=== PATIENT | female | born 1975 | race Hispanic/Latino ===

== ENCOUNTER → 2019-03-07 | Outpatient (CLI) | payer BC | END | disposition home or self-care (01) | LOC: RAH 10:14 | PROVIDERS: ATTEND Obstetrics & Gynecology | DX: N92.1 Excessive and frequent menstruation with irregular cycle (principal); D25.9 Leiomyoma of uterus, unspecified | CPT/HCPCS: 76856 ==

== ENCOUNTER 2019-03-10 15:19 | Emergency (ER) | payer BC ==
[2019-03-10] MEDS ORDERED: ACETAMINOPHEN EXTRA STRENGTH 500 MG TABLET ONE (16:00)
[2019-03-10] MEDS ORDERED: METOCLOPRAMIDE 10 MG TABLET ONE (16:00)
== END 2019-03-10 17:17 | disposition home or self-care (01) ==
LOC: EDH 15:19
DX: G44.209 Tension-type headache, unspecified, not intractable (principal); Z72.0 Tobacco use

== ENCOUNTER → 2019-04-22 | Outpatient (CLI) | payer BC | END | disposition home or self-care (01) | LOC: RAH 13:47 | PROVIDERS: ATTEND Obstetrics & Gynecology | DX: R92.2 Inconclusive mammogram (principal) | CPT/HCPCS: 76641 ==

== ENCOUNTER → 2019-11-11 | Outpatient (CLI) | payer BC | END | disposition home or self-care (01) | LOC: RAH 10:00 | PROVIDERS: ATTEND Obstetrics & Gynecology | DX: N64.4 Mastodynia (principal) | CPT/HCPCS: 76641 ==

== ENCOUNTER 2021-07-07 00:21 | Emergency (ER) | payer BC, OTHER ==
[~2021-07-07] VITALS: Ht 160 cm; Wt 59.0 kg
[2021-07-07 00:48] LABS: BASOPHILS % (AUTO) 0.6 % (0.0-5.0); EOSINOPHILS % (AUTO) 4.2 % (0.0-8.0); HEMATOCRIT 34.7 % (36-48); LYMPHOCYTES % (AUTO) 28.5 % (21.0-51.0); MEAN CORPUSCULAR HEMOGLOBIN 30.5 pg (27.0-33.0); MEAN CORPUSCULAR HGB CONC 32.9 g/dL (32.0-36.0); MEAN CORPUSCULAR VOLUME 92.8 fL (79-99); MONOCYTES % (AUTO) 9.1 % (3.0-13.0); NEUTROPHILS % (AUTO) 57.3 % (40.0-77.0); PLATELET COUNT (AUTO) 291 K/uL (130-400); RED BLOOD CELL COUNT(AUTO) 3.74 MIL/uL (4.00-5.50); RED CELL DISTRIBUTION WIDTH 13.3 % (11.0-15.5); WHITE BLOOD COUNT (AUTO) 9.5 K/uL (4.8-10.8)
[2021-07-07 01:00] LABS: CREATININE 0.6 mg/dL (0.5-1.5); POTASSIUM 3.5 mmol/L (3.5-5.1)
[2021-07-07 01:04] LABS: ALBUMIN 3.7 g/dL (3.5-5.0); BILIRUBIN,TOTAL 0.1 mg/dL (0.2-1.0); TOTAL PROTEIN, SERUM 7.4 g/dL (6.0-8.3)
[2021-07-07 01:25] LABS: APPEARANCE,URINE Cloudy (CLEAR); BILIRUBIN,URINE Negative (NEGATIVE); COLOR,URINE Yellow (YELLOW); GLUCOSE, URINE (UA) Negative (NEGATIVE); KETONES,URINE Negative (NEGATIVE); LEUKOCYTE ESTERASE ,URINE Negative (NEGATIVE); NITRATE,URINE Negative (NEGATIVE); OCCULT BLOOD,URINE Trace (NEGATIVE); PROTEIN,URINE Negative (NEGATIVE); UROBILINOGEN,URINE 0.2 mg/dL (0.2-1.0)
[2021-07-07 01:48] LABS: BACTERIA,URINE Moderate /HPF (None Seen); RBC,URINE 0-1 /HPF (0-1)
[2021-07-07 01:49] LABS: SQUAMOUS EPITHELIAL CELL,UR Many /HPF (0-2)
[2021-07-07] MEDS ORDERED: DEXAMETHASONE SOD PHOSPHATE 4 MG/ML 1ML VIAL ONE (02:59)
[2021-07-07] MEDS ORDERED: KETOROLAC 30MG VIAL (30MG/ML) ONE (02:59)
[2021-07-07] MEDS ORDERED: DEXAMETHASONE SOD PHOSPHATE 4 MG/ML 1ML VIAL IV ONE (03:00)
[2021-07-07] MEDS ORDERED: ORPHENADRINE CITRATE 30 MG/ML ML ONE (03:00)
[2021-07-07] MEDS ORDERED: ORPHENADRINE CITRATE 30 MG/ML ML IV ONE (03:00)
[2021-07-07] MEDS ORDERED: KETOROLAC 30MG VIAL (30MG/ML) IV ONE (03:00)
[2021-07-07 04:24] VITALS: BP 142/85
[2021-07-07] MEDS ORDERED: CYCL-309 PO (04:31)
[2021-07-07] MEDS ORDERED: LIDOP TP (04:31)
[2021-07-07] MEDS ORDERED: MELO7.5T12 PO (04:31)
== END 2021-07-07 05:10 | disposition home or self-care (01) ==
LOC: EDH 00:21
DX: R07.89 Other chest pain (principal); M62.838 Other muscle spasm; M54.9 Dorsalgia, unspecified; Z20.822 Contact with and (suspected) exposure to COVID-19; J45.909 Unspecified asthma, uncomplicated; Z79.1 Long term (current) use of non-steroidal anti-inflammatories (NSAID); Z79.52 Long term (current) use of systemic steroids
CPT/HCPCS: 36415; 71045; 80053; 81001; 84484; 85025; 87088; 87635; 87804 ×2; 93005; 96374; 96375; 99285; C9803; J1100; J1885; J2360

== ENCOUNTER 2021-10-07 12:26 | Emergency (ER) | payer OTHER ==
[~2021-10-07] VITALS: Ht 152.4 cm; Wt 59.0 kg
[~2021-10-07 12:26] MED LIST: CYCL-309 PO; LIDOP TP; MELO7.5T12 PO
[2021-10-07 14:29] LABS: APPEARANCE,URINE Clear (CLEAR); BILIRUBIN,URINE Negative (NEGATIVE); COLOR,URINE Yellow (YELLOW); GLUCOSE, URINE (UA) Negative (NEGATIVE); KETONES,URINE Negative (NEGATIVE); LEUKOCYTE ESTERASE ,URINE Negative (NEGATIVE); NITRATE,URINE Negative (NEGATIVE); OCCULT BLOOD,URINE Negative (NEGATIVE); PROTEIN,URINE Negative (NEGATIVE)
[2021-10-07 14:44] LABS: HCG,QUAL RESULT NEGATIVE (NEGATIVE)
[2021-10-07] MEDS ORDERED: ONDA4TAB10 PO (16:04)
[2021-10-07] MEDS ORDERED: IBUP-2070 PO (16:04)
[2021-10-07 16:24] VITALS: BP 149/82
[2021-10-07] MEDS ORDERED: KETOROLAC 30MG VIAL (30MG/ML) IM ONE (16:30)
== END 2021-10-07 16:46 | disposition home or self-care (01) ==
LOC: EDH 12:26
DX: S06.0X0A Concussion without loss of consciousness, initial encounter (principal); Z79.899 Other long term (current) drug therapy; Z98.890 Other specified postprocedural states; V86.95XA Unspecified occupant of 3- or 4- wheeled all-terrain vehicle (ATV) injured in nontraffic accident, initial encounter; Y93.89 Activity, other specified; Y92.89 Other specified places as the place of occurrence of the external cause; Y99.8 Other external cause status
CPT/HCPCS: 70450; 72125; 81003; 81025; 96372; 99284; J1885

== ENCOUNTER → 2024-01-08 | Outpatient (CLI) | payer OTHER ==
[~2024-01-08] MED LIST changes: +IBUP-2070 PO; +ONDA-243 PO
== END | disposition home or self-care (01) ==
LOC: RAH 14:10
PROVIDERS: ATTEND Family Medicine
DX: Z12.31 Encounter for screening mammogram for malignant neoplasm of breast (principal)
CPT/HCPCS: 77067

== ENCOUNTER 2024-07-18 11:13 | Emergency (ER) | payer OTHER ==
[~2024-07-18] VITALS: Ht 152.4 cm; Wt 54.4 kg
--- NOTE | 2024-07-18 11:42 | ERN ---
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 SHE DENIED NO BLOOD THINNERS NO LOC NO NAUSEA VOMITING HAS NOT BEEN TO SEE HER DOCTOR. SHE HAS A CONTUSION TO THE FOREHEAD. NO HEMOTYMPANUM NO MEJIA OR RACCOON SIGN. SHE DROVE HERSELF TO THE HOSPITAL IN HIS NOT BEEN TO SEE YOUR DOCTOR, HAS NOT TAKEN ANYTHING PRIOR TO ARRIVAL FOR PAIN Allergies: Coded Allergies: No Known Drug Allergies (Unverified Allergy, Unknown, 07/07/21) Home Meds Active Scripts Ibuprofen (Ibuprofen) 600 Mg Tablet, 600 MG PO Q6H PRN for PAIN, #15 TAB Prov:ARIADNA ECHEVARRIA 10/07/21 Ondansetron (Ondansetron Odt) 4 Mg Tab.rapdis, 4 MG PO TID, #15 TAB Prov:FITTINGARIADNAP 10/07/21 Lidocaine (Lidoderm Patch 5%) 1 Patch Patch, 1 PATCH TP DAILY PRN for PAIN LEVEL 1 TO 5, #30 ADH.PATCH 0 Refills Prov:CARLOS EDUARDO ALBERTO MD 07/07/21 Cyclobenzaprine HCl (Cyclobenzaprine HCl) 10 Mg Tablet, 10 MG PO TIDP, #20 TAB 0 Refills Prov:CARLOS EDUARDO ALBERTO MD 07/07/21 Meloxicam (Mobic) 7.5 Mg Tablet, 7.5 MG PO DAILY, #10 TAB 0 Refills Prov:CARLOS EDUARDO ALBERTO MD 07/07/21 Past Medical History Past Medical History: No Pertinent History Additional Past Medical Hx: COVID 12/26 Surgical History: Other Surgical History Other: BTL Social History: Lives with family History: Not Applicable RN Note Reviewed/Agreed w/PFSH: Yes Review of System Dictation CONSTITUTIONAL: NEGATIVE EXCEPT FOR HPI HEAD/FACE: NEGATIVE EXCEPT FOR HPI FOREHEAD CONTUSION GENERALIZED EENT: NEGATIVE EXCEPT FOR HPI RESPIRATORY: NEGATIVE EXCEPT FOR HPI GASTROINTESTINAL/ABDOMINAL: NEGATIVE EXCEPT FOR HPI GENITOURINARY: NEGATIVE EXCEPT FOR HPI MUSCULOSKELETAL: NEGATIVE EXCEPT FOR HPI INTEGUMENTARY: NEGATIVE EXCEPT FOR HPI NEUROLOGICAL/PSYCH: NEGATIVE EXCEPT FOR HPI FRONTAL HEADACHE HEMATOLOGIC/LYMPHATIC: NEGATIVE EXCEPT FOR HPI ALL SYSTEMS NEGATIVE, EXCEPT NOTED ABOVE. 13 POINT REVIEW OF SYSTEMS ASSESSED AND ALL NEGATIVE EXCEPT FOR ABOVE. Initial Vital Sign VS Vital Signs Date Time Temp Pulse Resp B/P (MAP) Pulse Ox O2 Delivery O2 Flow Rate FiO2 07/18/24 12:07 98.8 80 20 133/74 96 Room Air 0 Physical Exam Dictation VITAL SIGNS REVIEWED GENERAL APPEARANCE: ALERT, ORIENTED X 3, ACUTE DISTRESS, WELL DEVELOPED, N OURISHED. HEAD AND FACE: CONTUSION TO RIGHT FOREHEAD EYES: PERRL, PINK CONJUNCTIVAS, EYELID NO TRAUMA, ANTERIOR CHAMBER WITH ARCUS SENILIS. NO MJEIA OR RACCOON SIGN EARS: PINNAS INTACT AND NO SIGNS OF TRAUMA OR ERYTHEMA EAR CANALS CLEAR AND NO DISCHARGE TM NO ERYTHEMA NO HEMOTYMPANUM NOSE: NO DISCHARGE, NO BLEEDING. OROPHARYNX: MOUTH NORMAL, TONGUE PINK, PHARYNX CLEAR,NO ERYTHEMA, TONSILS NO EXUDATES, NO ABSCESSES NOTED, MUCOUS MEMBRANE MOIST NECK: SUPPLE, NON-TENDER, NO THYROMEGALY, NO MASSES, NO JVD, NO BRUITS BREAST:DEFERRED CHEST:NO TENDERNESS, NO CREPITUS, NO PARADOXICAL MOVEMENT, NO RETRACTIONS LUNGS:CLEAR, WELL-VENTILATED, SYMMETRIC, NO RALES, NO WHEEZING, NO RHONCHI, NO STRIDOR, GOOD BREATH SOUNDS BILATERALLY HEART: REGULAR RATE, REGULAR RHYTHM, NO MURMUR, NO GALLOPS VASCULAR: NO PERIPHERAL EDEMA, ABDOMEN: SOFT, POSITIVE BOWEL SOUNDS, NONDISTENDED, NO GUARDING, NONTENDER, NO REBOUND, NO MASSES NO HEPATOMEGALY, NO SPLENOMEGALY, NO BANUELOS'S SIGN, NO HERNIAS. RECTAL: DEFERRED GENITAL: DEFERRED NEUROLOGICAL: NORMAL SPEECH, MOTOR FUNCTION INTACT, SENSORY FUNCTION INTACT NIH NIH IS 0 MUSCULOSKELETAL: NECK NONTENDER, FULL RANGE OF MOTION, BACK NONTENDER, FULL RANGE OF MOTION, EXTREMITIES: NONTENDER, FULL RANGE OF MOTION SKIN: COLOR PINK, DRY, NO TURGOR, NO RASH, NO LACERATIONS, NO ABRASIONS, NO CONTUSIONS. LYMPHATIC: DEFERRED Results (Laboratory/Radiology) Laboratory/Radiology PROCEDURE: HEAD WO - CT HEAD/BRAIN W/O CONTRAST CT HEAD/BRAIN W/O CONTRAST HISTORY: Headaches COMPARISON: None TECHNIQUE: Multiple sequential axial images of the head were obtained from the base of the skull through vertex. Patient was not given contrast through intravenous route. FINDINGS: The ventricles and extraventricular CSF spaces are nondilated for patient's age. There is no midline shift, mass effect or herniation. No acute intracranial bleed is seen. Visualized portion of the paranasal sinuses are grossly within normal limits. IMPRESSION: 1. No acute intracranial bleed is seen. Labs Reviewed?: Yes ED Course ED Course Orders Procedure Category Date Status Time Ct Head/Brain W/O CT 07/18/24 Resulted Contrast 11:39 Acetaminophen 500mg PHA 07/18/24 Complete Tab (Tylenol 500mg T 12:00 Current Medications Medications (Trade) Dose Ordered Sig/Celia Route PRN Reason Start Time Stop Time Status Last Admin Dose Admin Acetaminophen (TYLenol 500MG TAB) 1,000 mg ONCE ONCE PO 07/18/24 12:00 07/18/24 12:01 DC Vital Signs Date Time Temp Pulse Resp B/P (MAP) Pulse Ox O2 Delivery O2 Flow Rate FiO2 07/18/24 12:07 98.8 80 20 133/74 96 Room Air 0 TWELVE 30 PATIENT NEUROLOGICALLY INTACT, CT NEGATIVE WE WILL DISCHARGE PATIENT HOME WITH POSTTRAUMATIC HEADACHE TOLD TO SEE HER DOCTOR AT [facility]. Medical Decision Making MDM MEDICAL DISCHARGE MAKING BASED ON CT OF THE HEAD AND TREATMENT FOR PAIN. CT NEGATIVE PATIENT DISCHARGED HOME WITH POSTTRAUMATIC HEADACHE AND TOLD TO SEE HER DOCTOR AT [facility] DX & DISP Disposition: Discharge Departure Impression: Primary Impression: Posttraumatic headache Condition: Stable Additional Instructions: FOLLOW-UP WITH PRIMARY CARE PROVIDER IN 1 TO 2 DAYS. TAKE MEDICATIONS DIRECTED HERE IN THE EMERGENCY ROOM. OKAY TO CONTINUE HOME MEDICATIONS UNLESS OTHERWISE DISCUSSED DURING YOUR VISIT IN THE EMERGENCY ROOM TODAY. RETURN TO YOUR NEAREST EMERGENCY ROOM IF SYMPTOMS WORSEN OR IF THERE IS NO IMPROVEMENT. CALL 911 IF YOU NEED IMMEDIATE ASSISTANCE. TAKE TYLENOL OR MOTRIN OVER-THE-CO UNTER NEEDED AND IF NO CONTRAINDICATIONS ARE PRESENT. INCREASE ORAL HYDRATION. A WOUND CULTURE OR URINE CULTURE WAS ORDERED HERE IN THE EMERGENCY ROOM DEPARTMENT PLEASE FOLLOW-UP WITH PRIMARY CARE PROVIDER AND ADVISE THEM TO GET REPEAT PORTS FROM OUR FACILITY. IF YOU HAD ANY GREGG WRAP/SPLINTS THAT WERE APPLIED HERE, PLEASE DO NOT REMOVE THEM UNTIL YOU SEE YOUR PRIMARY CARE OR SPECIALTY. TAKE TYLENOL [id number] NEEDED FOR PAIN. FOLLOW UP WITH YOUR PRIMARY CARE DOCTOR AT [facility]. Referrals: CLARKE BRICENO (PCP) Time of Disposition: 12:31 I have reviewed the case, and I agree with, Diagnosis and Plan DANA CELIS NP Jul 18, 2024 11:42
--- NOTE | 2024-07-18 12:10 | HMCIMG ---
CT HEAD/BRAIN W/O CONTRAST HISTORY: Headaches COMPARISON: None TECHNIQUE: Multiple sequential axial images of the head were obtained from the base of the skull through vertex. Patient was not given contrast through intravenous route. FINDINGS: The ventricles and extraventricular CSF spaces are nondilated for patient's age. There is no midline shift, mass effect or herniation. No acute intracranial bleed is seen. Visualized portion of the paranasal sinuses are grossly within normal limits. IMPRESSION: 1. No acute intracranial bleed is seen. CT was performed with one or more following dose reduction techniques: automated exposure control, adjustment of the mA and kv according to patient's size, or use of a iterative reconstruction technique.
[2024-07-18 12:58] VITALS: BP 141/62; PULSE 87; RESP 20; TEMP 98.7; O2SAT 100
[2024-07-18] MEDS: acetaMINOPHEN 500 MG TABLET PO ONE (13:07)
== END 2024-07-18 13:16 | disposition home or self-care (01) ==
LOC: EDH 11:13
DX: G44.309 Post-traumatic headache, unspecified, not intractable (principal); Z79.1 Long term (current) use of non-steroidal anti-inflammatories (NSAID); Z98.51 Tubal ligation status; Z98.890 Other specified postprocedural states
CPT/HCPCS: 70450; 99284

== ENCOUNTER 2025-05-22 21:49 | Emergency (ER) | payer BC, OTHER ==
[~2025-05-22] VITALS: Ht 152.4 cm; Wt 48.1 kg
[~2025-05-22 21:49] MED LIST changes: +IBUP-1492 PO; -IBUP-2070 PO
--- NOTE | 2025-05-22 21:56 | NUR ---
ID GIVEN BACK TO PATIENT, EMS, BOYFRIEND AND LAB ALL PRESENT. PATIENT PLACED ID IN PURSE
[2025-05-22 22:06] LABS: IMMATURE GRANULOCYTE ABSOLUTE 0.01 K/uL (0-1); NUCLEATED RED BLOOD CELLS 0.0 % (0.0-0.19); PLATELET COUNT (AUTO) 236 K/uL (130-400); RED BLOOD CELL COUNT(AUTO) 4.00 MIL/uL (4.00-5.50); RED CELL DISTRIBUTION WIDTH 13.0 % (11.0-15.5); WHITE BLOOD COUNT (AUTO) 7.3 K/uL (4.8-10.8)
--- NOTE | 2025-05-22 22:09 | NUR ---
ER PHYSICIAN ADVISED OF PATIENTS CONCERNS
[2025-05-22 22:19] LABS: CREATININE 0.7 mg/dL (0.5-1.0); GLOMERULAR FILTR. RATE CALC 105.0 mL/min (>90); GLUCOSE,RANDOM 99.0 mg/dL (70-105); SODIUM SERUM 137.0 mmol/L (136-145); UREA NITROGEN, BLOOD 12.0 mg/dL (7-18)
[2025-05-22 22:24] LABS: CREATINE KINASE, TOTAL 67.0 U/L (21-232)
--- NOTE | 2025-05-22 22:51 | HMCIMG ---
EXAM: CR Chest, 1 view. CLINICAL HISTORY: Chest pain. COMPARISON: None. FINDINGS: The lungs show no infiltration or other acute findings. No pleural effusion or pneumothorax. The cardio mediastinal silhouette is within normal limits. No acute osseous abnormality. IMPRESSION: No acute cardiopulmonary pathology is evident. /[place]
--- NOTE | 2025-05-22 22:59 | ERN ---
ED Note History of Present Illness Stated Complaint: CHEST PAIN, SOB Chief Complaint: Chest Pain Time Seen by MD: 21:52 Dictation: This is a very pleasant 49-year-old female with no major health problems came into the ER for evaluation of chest pressure that started this evening at 7:00 p.m.. Apparently patient has spouse was on a hunting trip and after she came back from work after extremely stressful day she was transferring close from [facility] and did not feel well she began experiencing pressure in the chest and also back pain with numbness of hands. No trauma no fall no nausea vomitings. Appears somewhat anxious. She has no history of high blood pressure but during this episode her blood pressure was a little bit elevated and she took telmisartan of her spouse;s medication. Patient received a dose of aspirin and nitro per EMS No menstrual periods since June. Severe stress at work She denied any shortness of breath, palpitations, diaphoresis, presyncope or syncope she does give history of feeling tight in her neck She normally does not take any medications for hypertension no history of diabetes patient not on any cholesterol medications. No history of any angina in the past no family history of sudden deaths or cardiac events at a younger age. He does admit to vaping nicotine and also consuming approximately 10-12 drinks per week of alcohol Temperature 98.1 pulse 112 respirations 20 blood pressure 114/74 with a pulse oximetry of 98% on room air Patient has a history of COVID in 2020 she also has a head CT in July of 2024 which was completely normal Allergies: Coded Allergies: No Known Drug Allergies (Unverified Allergy, Unknown, 07/07/21) Home Meds Active Scripts Ibuprofen (Ibuprofen) 600 Mg Tablet, 600 MG PO Q6H PRN for PAIN, #15 TAB Prov:ARIADNA ECHEVARRIA 10/07/21 Ondansetron (Ondansetron Odt) 4 Mg Tab.rapdis, 4 MG PO TID, #15 TAB Prov:ARIADNA ECHEVARRIAP 10/07/21 Lidocaine (Lidoderm Patch 5%) 1 Patch Patch, 1 PATCH TP DAILY PRN for PAIN LEVEL 1 TO 5, #30 ADH.PATCH 0 Refills Prov:CARLOS EDUARDO ALBERTO MD 07/07/21 Cyclobenzaprine HCl (Cyclobenzaprine HCl) 10 Mg Tablet, 10 MG PO TIDP, #20 TAB 0 Refills Prov:CARLOS EDUARDO ALBERTO MD 07/07/21 Meloxicam (Mobic) 7.5 Mg Tablet, 7.5 MG PO DAILY, #10 TAB 0 Refills Prov:CARLOS EDUARDO ALBERTO MD 07/07/21 Past Medical History Past Medical History: Hyperthyroid Additional Past Medical Hx: COVID 12/26 Surgical History: None Surgical History Other: BTL Social History: Smokers (Vapes nicotine), ETOH, Lives with family History: Not Applicable RN Note Reviewed/Agreed w/PFSH: Yes Review of System Dictation Constitutional: Negative for fever,chills, and weight loss Eyes: Negative for injury, pain,redness, and discharge ENT: Negative for injury,pain or swelling Cardiovascular: Positive for chest pressure, palpitations, and edema Respiratory: Negative for shortness of breath, cough, and wheezing, Abdomen/GI: Negative for abdominal pain, nausea, vomiting, diarrhea, and constipation Back: Negative for injury and positive for pain : Negative for injury, bleeding and discharge MS/Extremity: Negative for injury and deformity Skin: Negative for rash, and discoloration Neuro: Negative for headache, weakness, numbness, and seizure positive for tingling of hands Psych: Negative for suicide ideation, homicidal ideation, and hallucinations Initial Vital Sign VS Vital Signs Date Time Temp Pulse Resp B/P (MAP) Pulse Ox O2 Delivery O2 Flow Rate FiO2 05/22/25 21:51 98.1 112 20 114/74 98 Room Air 0 Physical Exam Dictation General: awake, alert, NAD Head/Face: Normocephalic, atraumatic Eyes: PERRL, EOMI, vision at baseline ENT: oral cavity clear, TMs clear, no signs of infection Neck: Trachea midline, supple, no nuchal rigidity Cardiovascular: RRR, normal S1/S2, No MRGs, no JVD Respiratory: CTAB, no respiratory distress, No rales or wheezes Abdomen: Soft, non-tender, non-distended, normal bowel sounds, no guarding or rebound. Skin: Warm, dry, normal turgor, no rash MS/Extremity: Pulses equal, no cyanosis, neurovascular intact, FROM Neuro: COAx4, GCS 15, strength 5/5, CN 2-12 intact, normal cerebellar exam, normal gait, Psych: Normal behavior, mood, and affect normal Extremities-trace edema without any palpable cords, Homans sign is negative Results (Laboratory/Radiology) Laboratory/Radiology Laboratory Tests Test 05/22/25 21:58 White Blood Count 7.3 K/uL (4.8-10.8) Red Blood Count 4.00 MIL/uL (4.00-5.50) Hemoglobin 12.7 g/dL (12.0-16.0) Hematocrit 38.5 % (36-48) Mean Corpuscular Volume 96.3 fL (79-99) Mean Corpuscular Hemoglobin 31.8 pg (27.0-33.0) Mean Corpuscular Hemoglobin Concent 33.0 g/dL (32.0-36.0) Red Cell Distribution Width 13.0 % (11.0-15.5) Platelet Count 236 K/uL (130-400) Mean Platelet Volume 10.4 fL (7.5-10.5) Immature Granulocyte % (Auto) 0.1 % (0-1) Neutrophils (%) (Auto) 69.4 % (40.0-77.0) Lymphocytes (%) (Auto) 20.5 % (21.0-51.0) L Monocytes (%) (Auto) 7.9 % (3.0-13.0) Eosinophils (%) (Auto) 1.6 % (0.0-8.0) Basophils (%) (Auto) 0.5 % (0.0-5.0) Neutrophils # (Auto) 5.1 K/uL (1.8-7.7) Lymphocytes # (Auto) 1.5 K/uL (1.0-4.8) Monocytes # (Auto) 0.6 K/uL (0.1-1.0) Eosinophils # (Auto) 0.12 K/uL (0.00-0.70) Basophils # (Auto) 0.04 K/uL (0.00-0.20) Absolute Immature Granulocyte (auto 0.01 K/uL (0-1) Nucleated Red Blood Cells 0.0 % (0.0-0.19) Sodium Level 137 mmol/L (136-145) Potassium Level 3.9 mmol/L (3.5-5.1) Chloride Level 101 mmol/L (101-111) Carbon Dioxide Level 27 mmol/L (21-32) Blood Urea Nitrogen 12 mg/dL (7-18) Creatinine 0.7 mg/dL (0.5-1.0) Glomerular Filtration Rate Calc 105 mL/min (>90) Random Glucose 99 mg/dL (70-105) Total Calcium 9.2 mg/dL (8.5-10.1) Total Creatine Kinase 67 U/L (21-232) # Troponin I High Sensitivity 4.2 ng/L (4-50) Labs Reviewed?: Yes EKG Comment: 12 lead EKG done on 05/22/2025 at 10:03 p.m. shows a heart rate of 70, SC interval 125, QRS 77, QT/QTC 389/421. Normal sinus rhythm with no acute STT wave changes noted. Interpreted by ER MD Dr. Chandler ED Course ED Course Orders Procedure Category Date Status Time 12 Lead Ekg Tracing- EKG 05/22/25 Logged Technical 21:52 Cbc With Differential LAB 05/22/25 Complete 21:52 Basic Metabolic Panel LAB 05/22/25 Complete 21:52 Cardiac Panel LAB 05/22/25 Complete 21:52 Chest 1vw RAD 05/22/25 Resulted 21:52 Alprazolam 0.25mg PHA 05/22/25 Complete (Xanax 0.25mg) 23:00 Ketorolac PHA 05/22/25 Complete Tromethamine 15mg/Ml 23:00 Ketorolac PHA 05/22/25 Complete Tromethamine 30mg/Ml 23:23 Ketorolac PHA 05/22/25 Complete Tromethamine 30mg/Ml 23:30 Current Medications Medications (Trade) Dose Ordered Sig/Celia Route PRN Reason Start Time Stop Time Status Last Admin Dose Admin Alprazolam (XANax 0.25MG) 0.25 mg ONCE ONCE PO 05/22/25 23:00 05/22/25 23:01 DC 05/22/25 23:26 Ketorolac Tromethamine (toRADol) 15 mg ONCE ONCE IM 05/22/25 23:00 05/22/25 23:01 DC Ketorolac Tromethamine (toRADol) 15 mg ONCE ONCE IM 05/22/25 23:30 05/22/25 23:31 DC 05/22/25 23:31 Ketorolac Tromethamine (toRADol) 30 mg STK-MED ONCE .ROUTE 05/22/25 23:23 05/22/25 23:23 DC Vital Signs Date Time Temp Pulse Resp B/P (MAP) Pulse Ox O2 Delivery O2 Flow Rate FiO2 05/22/25 21:51 98.1 112 20 114/74 98 Room Air 0 HEART Score Response (Comments) Value History: Low suspicion (0) 0 EKG: Normal 0 Age: 45-65yrs (+1) 1 Risk Factors: No known risk factors (0) 0 Initial Troponin: Normal limit (0) 0 HEART Score Risk: Low Risk for MACE (1-3) Total 1 Medical Decision Making MDM Differential diagnosis: Unstable angina, ACS, anxiety Esophagitis, gastroesophageal reflux disease, hiatal hernia, gastritis, pericarditis, costochondritis, pleurisy This is a very pleasant 49-year-old female with no major health problems came into the ER for evaluation of chest pressure that started this evening at 7:00 p.m.. Apparently patient has spouse was on a hunting trip and after she came back from work after extremely stressful day she was transferring close from [facility] and did not feel well she began experiencing pressure in the chest and also back pain with numbness of hands. No trauma no fall no nausea vomitings. Appears somewhat anxious. She has no history of high blood pressure but during this episode her blood pressure was a little bit elevated and she took telmisartan of her spouse;s medication. Patient received a dose of aspirin and nitro per EMS No menstrual periods since June. Severe stress at work She denied any shortness of breath, palpitations, diaphoresis, presyncope or syncope she does give history of feeling tight in her neck She normally does not take any medications for hypertension no history of diabetes patient not on any cholesterol medications. No history of any angina in the past no family history of sudden deaths or cardiac events at a younger age. He does admit to vaping nicotine and also consuming approximately 10-12 drinks per week of alcohol Temperature 98.1 pulse 112 respirations 20 blood pressure 114/74 with a pulse oximetry of 98% on room air Patient has a history of COVID in 2020 she also has a head CT in July of 2024 which was completely normal 12 lead EKGs completely normal with a heart rate of 70 Her heart score is extremely low. My clinical index of suspicion for a coronary event is extremely low. I strongly suspect combination of menopausal symptoms anxiety and stress at work triggering her symptoms at this time I updated the patient and her spouse on all the lab work chest x-ray EKG findings and negative troponins. We will give a trial of NSAID and a small anxiolytic. Patient feels much better Rationale: Tests considered and ordered secondary to shared decision making include: Labs and EKG +chest x-ray Previous outside records reviewed: Old ER visits. Risk of complication and/or morbidity or mortality of patient management: None Medications-Per medication reconciliation Need for hospitalization: Patient does not meet criteria for hospitalization. Need for emergency major/minor surgery: No There are no social concerns with this patient. Prescription drug management Prescriptions will include symptomatic care Patient's prior external medical records from other ER visits were reviewed by me as indicated. Prior testing and results from previous visits were reviewed. Prior tests were taken into account with medical decision making and resource utilization, independent historian/historians were used to obtain complete medical history. I independently interpreted the test that were performed, results were reviewed by me and considered findings on radiology if ordered. Medical management and examination interpretation discussions were had by me with other qualified healthcare professionals as indicated for the patient's care. Problem List Problem List: (1) Atypical chest pain (2) Back pain (3) Menopausal symptoms (4) Anxiety (5) Alcohol use disorder (6) Vaping nicotine dependence, non-tobacco product DX & DISP Disposition: Discharge Departure Impression: Primary Impression: Atypical chest pain Additional Impressions: Back pain, Anxiety, Vaping nicotine dependence, non- tobacco product, Alcohol use disorder, Menopausal symptoms Condition: Stable Additional Instructions: Patient and the caregiver have been informed of all the diagnostic tests and the imaging conducted during the today's visit to the emergency room and has verbalized understanding of the results I have personally reviewed and interpreted all diagnostic exams performed here in the ER today as well as the vital signs documented by the nursing staff. The patient is now being discharged to home and should follow up with the primary care physician or the specialist as directed by the ER staff. Follow-up with primary care provider in 1 to 2 days. Take medications as directed here in the emergency room. Okay to continue home medications unless otherwise discussed during your visit in the emergency room today. Return to your nearest emergency room if symptoms worsen or if there is no improvement. Call 911 if you need immediate assistance. Take Tylenol or Motrin [id number] as needed and if no contraindications are present. Increase oral hydration. A wound culture or urine culture was ordered here in the emergency room department please follow-up with primary care provider and advise them to get repeat ports from our facility. If you had any Ye wrap/splints that were applied here, please do not remove them until you see your primary care or specialty. Follow up with your primary care physician and address menopause. Referrals: CLARKE BRICENO (PCP) ZORA CHANDLER MD May 22, 2025 22:59
[2025-05-22 23:49] VITALS: BP 110/69; PULSE 84; RESP 16; TEMP 98.2; O2SAT 99
--- NOTE | 2025-05-23 08:38 | EKG ---
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
== END 2025-05-23 00:04 | disposition home or self-care (01) ==
LOC: EDH 21:49
DX: R07.89 Other chest pain (principal); M54.9 Dorsalgia, unspecified; F41.9 Anxiety disorder, unspecified; F17.290 Nicotine dependence, other tobacco product, uncomplicated; F10.10 Alcohol abuse, uncomplicated; N95.1 Menopausal and female climacteric states; R20.0 Anesthesia of skin; Z79.1 Long term (current) use of non-steroidal anti-inflammatories (NSAID); Z86.16 Personal history of COVID-19; Y90.9 Presence of alcohol in blood, level not specified
CPT/HCPCS: 99284; 71045; 82550; 84484; 80048; 85025; 36415; 96372; 93005; J1885